=== PATIENT | female | born 1955 | race Caucasian/White ===

== ENCOUNTER 2017-10-30 15:45 | Observation (INO) | payer OTHER ==
[~2017-10-30] VITALS: Ht 165.1 cm; Wt 70.5 kg
[~2017-10-30 15:45] MED LIST: ALPR.25 PO; CYCL1PAK PO; GABA100C4 PO; LISI-363 PO; NITR0.4S SL; NORV5TAB PO; SSD1CRE TOP
[2017-10-30 15:46] VITALS: BP 200/136; PULSE 56; RESP 16; TEMP 98.3; O2SAT 100
[2017-10-30 18:29] LABS: AUTOMATED NEUTROPHIL # 3.3 TH/MM3 (1.8-7.7); BASOPHIL % 0.6 % (0.0-2.0); EOSINOPHIL # 0.1 TH/MM3 (0-0.4); EOSINOPHIL % 1.4 % (0.0-4.0); LYMPH % 44.5 % (9.0-44.0); MEAN CELL VOLUME 90.1 FL (80.0-100.0); MEAN CORPUSCULAR HEMOGLOBIN 30.8 PG (27.0-34.0); MEAN CORPUSCULAR HGB CONC 34.2 % (32.0-36.0); MEAN PLATELET VOLUME 8.3 FL (7.0-11.0); MONO % 5.1 % (0.0-8.0); MONOCYTE # 0.3 TH/MM3 (0-0.9); NEUT % 48.4 % (16.0-70.0); PLATELET COUNT 231 TH/MM3 (150-450); RED BLOOD COUNT 4.54 MIL/MM3 (4.00-5.30); RED CELL DISTRIBUTION WIDTH 12.9 % (11.6-17.2); WHITE BLOOD COUNT 6.8 TH/MM3 (4.0-11.0)
[2017-10-30 18:39] LABS: PROTHROMBIN TIME - PATIENT 9.8 SEC (9.8-11.6)
[2017-10-30 18:40] LABS: ALBUMIN 4.3 GM/DL (3.4-5.0); ALT (GPT) 23 U/L (10-53); AST (GOT) 16 U/L (15-37); BICARBONATE 30.2 MEQ/L (21.0-32.0); BLOOD UREA NITROGEN 12 MG/DL (7-18); CHLORIDE 102 MEQ/L (98-107); CREATININE 0.68 MG/DL (0.50-1.00); GLOMERULAR FILTRATION RATE 87 ML/MIN (>89); GLUCOSE,RANDOM 91 MG/DL (74-106); MAGNESIUM 2.3 MG/DL (1.5-2.5); SODIUM (NA) 138 MEQ/L (136-145)
[2017-10-30 18:44] LABS: ALKALINE PHOSPHATASE 103 U/L (45-117); TOTAL BILIRUBIN ADULT 0.4 MG/DL (0.2-1.0); TOTAL PROTEIN 7.9 GM/DL (6.4-8.2); TROPONIN I LESS THAN 0.02 NG/ML (0.02-0.05)
[2017-10-30 20:48] VITALS: BP 225/102; PULSE 48; RESP 18; O2SAT 99
[2017-10-30] MEDS ORDERED: CYCL5TAB PO (20:59)
[2017-10-30] MEDS ORDERED: ALPR0.25 PO (20:59)
[2017-10-30] MEDS ORDERED: METO1TAB9 PO (20:59)
[2017-10-30] MEDS ORDERED: DICY10CA12 PO (20:59)
[2017-10-30] MEDS ORDERED: GABA300C5 PO (20:59)
[2017-10-30] MEDS ORDERED: hydrALAZINE HCL 20 MG/ML VIAL IV PUSH ONE (21:15)
--- NOTE | 2017-10-30 21:40 | PD ---
HPI Chief Complaint: Medical Clearance Time Seen by Provider: 20:57 Travel History International Travel<30 days: No Contact w/Intl Traveler<30days: No Traveled to known affect area: No History of Present Illness HPI 62-year-old female that presents to the ED for evaluation of left arm pain. Per patient she has been not feeling well since yesterday. Per patient today she woke up with left biceps pain. Per patient she's had a history of heart disease and feels similar to her previous event. Per patient 2013 she had a heart And similar symptoms was found to have likely quinton spasm of her arteries. She was not found to have any clot the needed stenting. Per patient last time she had the same symptoms and she did not have any chest pain. Per patient he feels just like last time. Per patient the discomfort to the arm is more like a spasm. She denies falling asleep on it or injuring it. No history of blood clots. She states compliance with her medications including metoprolol for high blood pressure. She does have a history of smoking. Family history of heart disease. No history of diabetes or high cholesterol. She states that she took her metoprolol dose today. Per patient her blood pressure has been monitored with PCP and has been doing well. She still rates her pain as 4 out of 10. Again no chest pain or shortness of breath. Per patient she did not take aspirin but she doesn't know why her doctor told her to stop taking the aspirin. Per patient she was told not to take aspirin anymore. PFSH Past Medical History Cancer: Yes (CERVICAL CA--HYSTERECTOMY 2005) Cardiovascular Problems: Yes (LAD SPASM 01/2014) Chest Pain: No Diabetes: No Endocrine: No Gastrointestinal Disorders: Yes (ACID REFLUX, ULCER WHEN 19 Y.O.) Glaucoma: No Genitourinary: No Hepatitis: Yes Hiatal Hernia: No Hypertension: Yes Immune Disorder: No Musculoskeletal: Yes (ARTHRITIS, LOWER BACK PROBLEMS) Neurologic: No Psychiatric: Yes (ANXIETY) Reproductive: No Respiratory: No Integumentary: No Thyroid Disease: Yes (NODULE REMOVED 1981) Tetanus Vaccination: > 5 Years Influenza Vaccination: No ?: Not Past Surgical History Abdominal Surgery: No AICD: No Cardiac Surgery: Yes (CARDIAC CATH , NO STENTS) Ear Surgery: No Endocrine Surgery: Yes (THYROID NODULE REMOVED 1981) Genitourinary Surgery: No Gynecologic Surgery: Yes (TOTAL HYSTERECTOMY 2005) Hysterectomy: Yes Joint Replacement: No Oral Surgery: No Pacemaker: No Thoracic Surgery: No Other Surgery: Yes (THYROID NODE REMOVED) Social History Alcohol Use: No Tobacco Use: Yes (VERY RARE) Substance Use: No Allergies-Medications (Allergen,Severity, Reaction): Coded Allergies: caffeine (Unverified Allergy, Severe, Rash, CARDIAC SPASMS, 06/05/17) prochlorperazine (Unverified Adverse Reaction, Severe, Numbness, FACIAL SPASM, 06/05/17) Reported Meds & Prescriptions Reported Meds & Active Scripts Active Reported Dicyclomine (Dicyclomine HCl) 10 Mg Cap 10 Mg PO QID Metoprolol Succinate ER 24 HR (Metoprolol Succinate) 50 Mg Tab 50 Mg PO DAILY Flexeril (Cyclobenzaprine HCl) 5 Mg Tab 5 Mg PO TID Gabapentin 300 Mg Cap 300 Mg PO BID Alprazolam 0.25 Mg Tab 0.25 Mg PO Q4H PRN Review of Systems Except as stated in HPI: all other systems reviewed are Neg Physical Exam Narrative GENERAL: SKIN: Warm and dry. HEAD: Atraumatic. Normocephalic. EYES: Pupils equal and round. No scleral icterus. No injection or drainage. ENT: No nasal bleeding or discharge. Mucous membranes pink and moist. Tongue is midline. No uvula deviation. NECK: Trachea midline. No JVD. CARDIOVASCULAR: Regular rate and rhythm. No murmurs, S3, S4. RESPIRATORY: No accessory muscle use. Clear to auscultation. Breath sounds equal bilaterally. GASTROINTESTINAL: Abdomen soft, non-tender, nondistended. Hepatic and splenic margins not palpable. MUSCULOSKELETAL: Extremities without clubbing, cyanosis, or edema. No obvious deformities. Full range of motion of the upper and lower extremities bilaterally. No obvious deformity or reproducible pain on the left triceps or biceps area. No lymphadenopathy noted. 2+ pulses bilaterally. NEUROLOGICAL: Awake and alert. No obvious cranial nerve deficits. Motor grossly within normal limits. Five out of 5 muscle strength in the arms and legs. Normal speech. PSYCHIATRIC: Appropriate mood and affect; insight and judgment normal. Data Data Last Documented VS Vital Signs Date Time Temp Pulse Resp B/P (MAP) Pulse Ox O2 Delivery O2 Flow Rate FiO2 10/30/17 22:38 71 18 158/83 (108) 99 Room Air 10/30/17 15:46 98.3 Orders Orders Electrocardiogram (10/30/17 16:30) Ckmb (Isoenzyme) Profile (10/30/17 16:30) Complete Blood Count With Diff (10/30/17 16:30) Comprehensive Metabolic Panel (10/30/17 16:30) Magnesium (Mg) (10/30/17 16:30) Prothrombin Time / Inr (Pt) (10/30/17 16:30) Act Partial Throm Time (Ptt) (10/30/17 16:30) Troponin I (10/30/17 16:30) Hydralazine Inj (Apresoline Inj) (10/30/17 21:15) Us Arm Venous Doppler (10/30/17 ) Chest, Single Ap (10/30/17 ) Nitroglycerin Sl (Nitrostat Sl) (10/30/17 22:15) Acetaminophen (Tylenol) (10/30/17 22:15) Labs Laboratory Tests Test 10/30/17 18:05 White Blood Count 6.8 TH/MM3 Red Blood Count 4.54 MIL/MM3 Hemoglobin 14.0 GM/DL Hematocrit 41.0 % Mean Corpuscular Volume 90.1 FL Mean Corpuscular Hemoglobin 30.8 PG Mean Corpuscular Hemoglobin Concent 34.2 % Red Cell Distribution Width 12.9 % Platelet Count 231 TH/MM3 Mean Platelet Volume 8.3 FL Neutrophils (%) (Auto) 48.4 % Lymphocytes (%) (Auto) 44.5 % Monocytes (%) (Auto) 5.1 % Eosinophils (%) (Auto) 1.4 % Basophils (%) (Auto) 0.6 % Neutrophils # (Auto) 3.3 TH/MM3 Lymphocytes # (Auto) 3.0 TH/MM3 Monocytes # (Auto) 0.3 TH/MM3 Eosinophils # (Auto) 0.1 TH/MM3 Basophils # (Auto) 0.0 TH/MM3 CBC Comment DIFF FINAL Differential Comment Prothrombin Time 9.8 SEC Prothromb Time International Ratio 1.0 RATIO Activated Partial Thromboplast Time 30.6 SEC Blood Urea Nitrogen 12 MG/DL Creatinine 0.68 MG/DL Random Glucose 91 MG/DL Total Protein 7.9 GM/DL Albumin 4.3 GM/DL Calcium Level 9.0 MG/DL Magnesium Level 2.3 MG/DL Alkaline Phosphatase 103 U/L Aspartate Amino Transf (AST/SGOT) 16 U/L Alanine Aminotransferase (ALT/SGPT) 23 U/L Total Bilirubin 0.4 MG/DL Sodium Level 138 MEQ/L Potassium Level 4.3 MEQ/L Chloride Level 102 MEQ/L Carbon Dioxide Level 30.2 MEQ/L Anion Gap 6 MEQ/L Estimat Glomerular Filtration Rate 87 ML/MIN Total Creatine Kinase 51 U/L Troponin I LESS THAN 0.02 NG/ML MDM Medical Decision Making Medical Screen Exam Complete: Yes Emergency Medical Condition: Yes Medical Record Reviewed: Yes Interpretation(s) CBC & BMP Diagram 10/30/17 18:05 Total Protein 7.9, Albumin 4.3, Calcium Level 9.0, Magnesium Level 2.3, Alkaline Phosphatase 103, Aspartate Amino Transf (AST/SGOT) 16, Alanine Aminotransferase (ALT/SGPT) 23, Total Bilirubin 0.4 troponin and CKMB negative EKG shows sinus bradycardia but no sign of acute ischemia read by me and attending. Differential Diagnosis ACS versus DVT versus electrolyte abnormality versus anxiety versus angina equivalent versus normal exam Narrative Course 62-year-old female that presents to the ED for evaluation of left arm pain. Patient was properly examined and was found to have signs and symptoms consistent with appears to be left arm pain. Concerning for ACS is patient states this is the same history she had before. I did review the patient's medical records and she her heart Here that show possible basilar spasm and no clotting. Patient does have a history of high blood pressure and was found to be hypertensive here. Case discussed in my attending who agrees with plan. Labs and imaging were ordered. Patient was given IV hydralazine. labs and imaging showed no obvious sign of acute disease. Patient did develop some chest pain and nitro given. BP came down. CXR was reordered as patient initially refused it as she had no chest pain. Case was signed out to my attending pending admission. Irwin Franco Oct 30, 2017 21:40
[2017-10-30 22:00] VITALS: BP 190/91; PULSE 83; RESP 18; O2SAT 99
[2017-10-30] MEDS ORDERED: ACETAMINOPHEN 325 MG TAB PO ONE (22:15)
[2017-10-30] MEDS ORDERED: NITROGLYCERIN 0.4 MG SL 25 TABS/BTL SL ONE (22:15)
--- NOTE | 2017-10-30 22:15 | RADRPT ---
EXAM DATE/TIME: 10/30/2017 21:36 [facility] COMPARISON: No previous studies available for comparison. INDICATIONS : Left arm pain. MEDICAL HISTORY : Hypertension. Gastroesophageal reflux disease. Ulcer. Cervical cancer. Anxiety. SURGICAL HISTORY : Hysterectomy. Cardiac catheterization. Thyroid nodule removed. Lumbar disc surgery. ENCOUNTER: Initial ACUITY: 1 day PAIN SCORE: 4/10 LOCATION: Left arm. FINDINGS: There is spontaneous flow documented in the brachial, basilic, axillary, and subclavian veins. Could not identify the cephalic vein The vessels are compressible and augmentation response is documented. No filling defects are seen. The flow is phasic with respiration. Direction of flow in the jugula r vein is caudal. CONCLUSION: Unremarkable Doppler ultrasound of the left arm. Nonvisualization of the cephalic vein. Hiren Bourne MD on October 30, 2017 at 22:12 Board Certified Radiologist. This report was verified electronically.
[2017-10-30 22:38] VITALS: BP 158/83; PULSE 71; RESP 18; O2SAT 99
--- NOTE | 2017-10-30 23:03 | RADRPT ---
EXAM DATE/TIME: 10/30/2017 22:49 [facility] COMPARISON: CHEST SINGLE AP, October 12, 2014, 5:46. INDICATIONS : Chest pain. MEDICAL HISTORY : Hypertension. Gastroesophageal reflux disease. Cervical cancer. SURGICAL HISTORY : Hysterectomy. ENCOUNTER: Initial ACUITY: 1 day PAIN SCORE: 4/10 LOCATION: Bilateral chest FINDINGS: A single view of the chest demonstrates the lungs to be symmetrically aerated without evidence of mas s, infiltrate or effusion. The cardiomediastinal contours are unremarkable. Osseous structures are intact. CONCLUSION: 1. No acute cardiopulmonary disease. Sameer Lora MD on October 30, 2017 at 23:01 Board Certified Radiologist. This report was verified electronically.
[2017-10-30] MEDS ORDERED: ONDANSETRON HCL 4 MG/2 ML VIAL IV PUSH ONE (23:45)
[2017-10-31] VITALS (7 sets, daily range): BP systolic 127–220; BP diastolic 60–110; PULSE 62–85; RESP 16–20; TEMP 98.2; O2SAT 98–99
--- NOTE | 2017-10-31 00:21 | PD ---
Physical Exam Narrative Patient was seen by my hair assistant and signed out to me. Data Data Last Documented VS Vital Signs Date Time Temp Pulse Resp B/P (MAP) Pulse Ox O2 Delivery O2 Flow Rate FiO2 10/30/17 22:38 71 18 158/83 (108) 99 Room Air 10/30/17 15:46 98.3 Orders Orders Electrocardiogram (10/30/17 16:30) Ckmb (Isoenzyme) Profile (10/30/17 16:30) Complete Blood Count With Diff (10/30/17 16:30) Comprehensive Metabolic Panel (10/30/17 16:30) Magnesium (Mg) (10/30/17 16:30) Prothrombin Time / Inr (Pt) (10/30/17 16:30) Act Partial Throm Time (Ptt) (10/30/17 16:30) Troponin I (10/30/17 16:30) Hydralazine Inj (Apresoline Inj) (10/30/17 21:15) Us Arm Venous Doppler (10/30/17 ) Chest, Single Ap (10/30/17 ) Nitroglycerin Sl (Nitrostat Sl) (10/30/17 22:15) Acetaminophen (Tylenol) (10/30/17 22:15) Ondansetron Inj (Zofran Inj) (10/30/17 23:45) Labs Laboratory Tests Test 10/30/17 18:05 White Blood Count 6.8 TH/MM3 Red Blood Count 4.54 MIL/MM3 Hemoglobin 14.0 GM/DL Hematocrit 41.0 % Mean Corpuscular Volume 90.1 FL Mean Corpuscular Hemoglobin 30.8 PG Mean Corpuscular Hemoglobin Concent 34.2 % Red Cell Distribution Width 12.9 % Platelet Count 231 TH/MM3 Mean Platelet Volume 8.3 FL Neutrophils (%) (Auto) 48.4 % Lymphocytes (%) (Auto) 44.5 % Monocytes (%) (Auto) 5.1 % Eosinophils (%) (Auto) 1.4 % Basophils (%) (Auto) 0.6 % Neutrophils # (Auto) 3.3 TH/MM3 Lymphocytes # (Auto) 3.0 TH/MM3 Monocytes # (Auto) 0.3 TH/MM3 Eosinophils # (Auto) 0.1 TH/MM3 Basophils # (Auto) 0.0 TH/MM3 CBC Comment DIFF FINAL Differential Comment Prothrombin Time 9.8 SEC Prothromb Time International Ratio 1.0 RATIO Activated Partial Thromboplast Time 30.6 SEC Blood Urea Nitrogen 12 MG/DL Creatinine 0.68 MG/DL Random Glucose 91 MG/DL Total Protein 7.9 GM/DL Albumin 4.3 GM/DL Calcium Level 9.0 MG/DL Magnesium Level 2.3 MG/DL Alkaline Phosphatase 103 U/L Aspartate Amino Transf (AST/SGOT) 16 U/L Alanine Aminotransferase (ALT/SGPT) 23 U/L Total Bilirubin 0.4 MG/DL Sodium Level 138 MEQ/L Potassium Level 4.3 MEQ/L Chloride Level 102 MEQ/L Carbon Dioxide Level 30.2 MEQ/L Anion Gap 6 MEQ/L Estimat Glomerular Filtration Rate 87 ML/MIN Total Creatine Kinase 51 U/L Troponin I LESS THAN 0.02 NG/ML MDM Supervised Visit with ADAL: Yes Interpretation(s) 12:15 AM. EKG shows sinus bradycardia rate 47. Nonspecific ST-T wave changes. Inverted T-wave in V1 and V2. Last Impressions Upper Extremity Ultrasound 10/30/17 0000 Signed Impressions: Service Date/Time: Monday, October 30, 2017 21:36 - CONCLUSION: Unremarkable Doppler ultrasound of the left arm. Nonvisualization of the cephalic vein. Hiren Bourne MD Chest X-Ray 10/30/17 0000 Signed Impressions: Service Date/Time: Monday, October 30, 2017 22:49 - CONCLUSION: 1. No acute cardiopulmonary disease. Sameer Lora MD CBC within normal limit. CMP within normal limit. Cardiac enzymes are normal. Diagnosis Primary Impression: Chest pain Qualified Codes: R07.9 - Chest pain, unspecified Additional Impression: Uncontrolled hypertension Emil Nguyen MD Oct 31, 2017 00:21
[2017-10-31] MEDS ORDERED: cloNIDine HCL 0.1 MG TAB PO ONE (00:30)
[2017-10-31] MEDS ORDERED: ACETAMINOPHEN 325 MG TAB PO ONE (00:30)
[2017-10-31] MEDS ORDERED: ONDANSETRON HCL 4 MG/2 ML VIAL IV PUSH PRN (00:45)
[2017-10-31] MEDS ORDERED: ACETAMINOPHEN 500 MG CPLT PO PRN (00:45)
[2017-10-31] MEDS ORDERED: SODIUM CHLORIDE 0.9% FLUSH 10 ML FLUSH IV FLUSH PRN (00:45)
[2017-10-31 03:28] LABS: TROPONIN I LESS THAN 0.02 NG/ML (0.02-0.05)
[2017-10-31] MEDS ORDERED: LABETALOL HCL 100 MG/20 ML VIAL IV PUSH ONE (05:45)
[2017-10-31] MEDS ORDERED: METOCLOPRAMIDE HCL 10 MG/2 ML VIAL IV PUSH ONE ×3 (05:45→10:00)
[2017-10-31] MEDS ORDERED: diphenhydrAMINE HCL 50 MG/ML VIAL IV PUSH ONE (05:45)
[2017-10-31 06:17] LABS: TROPONIN I LESS THAN 0.02 NG/ML (0.02-0.05)
--- NOTE | 2017-10-31 08:43 | HHI.HP ---
[facility] Primary Care Physician Ganesh Noel M.D. Chief Complaint Left arm pain History of Present Illness This is a 62-year-old female that presents to ED via private vehicle with complaint of having left arm discomfort throughout the day yesterday. Estimates at least 8 hours. Found nothing to worsen or improve it. Denies shortness breath, nausea, or diaphoresis. States she follows Dr. Pompa. Dates blood pressure medication was recently changed from lisinopril to metoprolol. States her blood pressure has been high since being in the ED. Planes also headache when she initially arrived in the ED but that has since resolved. Review of Systems General: Patient denies fevers, chills recent, and recent travel HEENT: Patient denies headache, sore throat, difficulty swallowing. Cardiovascular: Has the left arm discomfort as mentioned above. Denies sensation of heart beating rapidly or irregularly. No syncope. Respiratory: Denies shortness of breath or inspirational chest discomfort. Denies coughing wheezing or hemoptysis. GI: Patient denies nausea, vomiting, diarrhea, abdominal pain, bloody stools. Musculoskeletal: Patient denies joint pain or edema. Denies calf pain or edema. Neurovascular: Patient denies numbness, tingling, weakness in extremities. Denies headache. Endocrine: Denies polyuria and polydipsia. Hematologic: Denies easy bruising. Skin: Denies rash or itching. Past Family Social History Allergies: Coded Allergies: caffeine (Unverified Allergy, Severe, Rash, CARDIAC SPASMS, 06/05/17) prochlorperazine (Unverified Adverse Reaction, Severe, Numbness, FACIAL SPASM, 06/05/17) Past Medical History Hypertension. Denies hyperlipidemia, diabetes, and known CAD. Past Surgical History Elio catheterization without intervention in 2013. Reported Medications Reported Meds & Active Scripts Active Reported Dicyclomine (Dicyclomine HCl) 10 Mg Cap 10 Mg PO QID Metoprolol Succinate ER 24 HR (Metoprolol Succinate) 50 Mg Tab 50 Mg PO DAILY Flexeril (Cyclobenzaprine HCl) 5 Mg Tab 5 Mg PO TID Gabapentin 300 Mg Cap 300 Mg PO BID Alprazolam 0.25 Mg Tab 0.25 Mg PO Q4H PRN Active Ordered Medications Current Medications Medications (Trade) Dose Ordered Sig/Bacilio Route Start Time Stop Time Status Last Admin (NS Flush) 2 ml UNSCH PRN IV FLUSH 10/31/17 00:45 (NS Flush) 2 ml BID IV FLUSH 10/31/17 09:00 (Tylenol) 500 mg Q4H PRN PO 10/31/17 00:45 (Zofran Inj) 4 mg Q6H PRN IV PUSH 10/31/17 00:45 (Norvasc) 5 mg DAILY PO 10/31/17 09:00 Family History Denies family history of CAD. Social History Quit smoking a couple years ago but prior that she smoked maybe three-quarter pack of cigars daily for 8-10 years. Denies alcohol or illicit drugs. Physical Exam Vital Signs Vital Signs Date Time Temp Pulse Resp B/P (MAP) Pulse Ox O2 Delivery O2 Flow Rate FiO2 10/31/17 06:30 187/88 (121) 10/31/17 05:43 85 20 220/110 (146) 99 Room Air 10/31/17 04:30 65 18 180/89 (119) 98 Room Air 10/31/17 00:20 62 18 184/88 (120) 98 Room Air 10/30/17 22:38 71 18 158/83 (108) 99 Room Air 10/30/17 22:00 83 18 190/91 (124) 99 Room Air 10/30/17 20:48 48 18 225/102 (143) 99 Room Air 10/30/17 15:46 98.3 56 16 200/136 (157) 100 Room Air Physical Exam GENERAL: This is a well-nourished, well-developed patient, in no apparent distress. Patient speaks in clear complete sentences. Patient is pleasant. HEENT: Head is atraumatic and normocephalic. Neck is supple without lymphadenopathy and trachea is midline. No JVD or carotid bruits. CARDIOVASCULAR: Regular rate and rhythm without murmurs, gallops, or rubs. RESPIRATORY: Clear to auscultation. Breath sounds equal bilaterally. No wheezes , rales, or rhonchi. Chest wall is nontender. No use of accessory muscles. GASTROINTESTINAL: Abdomen is nontender, nondistended. Abdomen soft. No obvious pulsatile mass or bruit. No CVA tenderness. Strong femoral pulses bilaterally. Normal bowel sounds in all quadrants. MUSCULOSKELETAL: Patient is moving upper and lower extremities freely. No calf tenderness or edema, no Homans sign. Strong pulses in upper and lower extremities. NEUROLOGICAL: Patient is alert and oriented. Cranial nerves 2-12 are grossly intact. No focal deficits and speech is clear. SKIN: No rash and turgor is normal. Laboratory Laboratory Tests Test 10/30/17 18:05 10/31/17 02:50 10/31/17 05:40 White Blood Count 6.8 Red Blood Count 4.54 Hemoglobin 14.0 Hematocrit 41.0 Mean Corpuscular Volume 90.1 Mean Corpuscular Hemoglobin 30.8 Mean Corpuscular Hemoglobin Concent 34.2 Red Cell Distribution Width 12.9 Platelet Count 231 Mean Platelet Volume 8.3 Neutrophils (%) (Auto) 48.4 Lymphocytes (%) (Auto) 44.5 Monocytes (%) (Auto) 5.1 Eosinophils (%) (Auto) 1.4 Basophils (%) (Auto) 0.6 Neutrophils # (Auto) 3.3 Lymphocytes # (Auto) 3.0 Monocytes # (Auto) 0.3 Eosinophils # (Auto) 0.1 Basophils # (Auto) 0.0 CBC Comment DIFF FINAL Differential Comment Prothrombin Time 9.8 Prothromb Time International Ratio 1.0 Activated Partial Thromboplast Time 30.6 Blood Urea Nitrogen 12 Creatinine 0.68 Random Glucose 91 Total Protein 7.9 Albumin 4.3 Calcium Level 9.0 Magnesium Level 2.3 Alkaline Phosphatase 103 Aspartate Amino Transf (AST/SGOT) 16 Alanine Aminotransferase (ALT/SGPT) 23 Total Bilirubin 0.4 Sodium Level 138 Potassium Level 4.3 Chloride Level 102 Carbon Dioxide Level 30.2 Anion Gap 6 Estimat Glomerular Filtration Rate 87 Total Creatine Kinase 51 42 57 Troponin I LESS THAN 0.02 LESS THAN 0.02 LESS THAN 0.02 Result Diagram: 10/30/17180410/30/171804 Imaging Last 48 hours Impressions Upper Extremity Ultrasound 10/30/17 0000 Signed Impressions: Service Date/Time: Monday, October 30, 2017 21:36 - CONCLUSION: Unremarkable Doppler ultrasound of the left arm. Nonvisualization of the cephalic vein. Hiren Bourne MD Chest X-Ray 10/30/17 0000 Signed Impressions: Service Date/Time: Monday, October 30, 2017 22:49 - CONCLUSION: 1. No acute cardiopulmonary disease. Sameer Lora MD Course EKGs have been sinus rhythm to sinus bradycardia without significant ST segment depressions or elevations. Caprini VTE Risk Assessment Caprini VTE Risk Assessment: Mod/High Risk (score >= 2) Caprini Risk Assessment Model Point Value = 1 Point Value = 2 Point Value = 3 Point Value = 5 Age 41-60 Minor surgery BMI > 25 kg/m2 Swollen legs Varicose veins or History of unexplained or recurrent spontaneous Oral contraceptives or hormone replacement Sepsis (< 1 month) Serious lung disease, including pneumonia (< 1 month) Abnormal pulmonary function Acute myocardial infarction Congestive heart failure (< 1 month) History of inflammatory bowel disease Medical patient at bed rest Age 61-74 Arthroscopic surgery Major open surgery (> 45 min) Laparoscopic surgery (> 45 min) Malignancy Confined to bed (> 72 hours) Immobilizing plaster cast Central venous access Age >= 75 History of VTE Family history of VTE Factor V Leiden Prothrombin [id number] Lupus anticoagulant Anticardiolipin antibodies Elevated serum homocysteine Heparin-induced thrombocytopenia Other congenital or acquired thrombophilia Stroke (< 1 month) Elective arthroplasty Hip, pelvis, or leg fracture Acute spinal cord injury (< 1 month) Prophylaxis Regimen Total Risk Factor Score Risk Level Prophylaxis Regimen 0-1 Low Early ambulation 2 Moderate Order ONE of the following: *Sequential Compression Device (SCD) *Heparin 5000 units SQ BID 3-4 Higher Order ONE of the following medications: *Heparin 5000 units SQ TID *Enoxaparin/Lovenox 40 mg SQ daily (WT < 150 kg, CrCl > 30 mL/min) *Enoxaparin/Lovenox 30 mg SQ daily (WT < 150 kg, CrCl > 10-29 mL/min) *Enoxaparin/Lovenox 30 mg SQ BID (WT < 150 kg, CrCl > 30 mL/min) AND/OR *Sequential Compression Device (SCD) 5 or more Highest Order ONE of the following medications: *Heparin 5000 units SQ TID (Preferred with Epidurals) *Enoxaparin/Lovenox 40 mg SQ daily (WT < 150 kg, CrCl > 30 mL/min) *Enoxaparin/Lovenox 30 mg SQ daily (WT < 150 kg, CrCl > 10-29 mL/min) *Enoxaparin/Lovenox 30 mg SQ BID (WT < 150 kg, CrCl > 30 mL/min) AND *Sequential Compression Device (SCD) Assessment and Plan Assessment and Plan * Left arm pain/atypical chest pain: Patient complained of left arm pain lasting for 8 hours. Had normal troponins. Seen by Dr. Sameer Mcmahon of cardiology in the chest pain center. Review records, patient had cardiac catheterization in 2013 with essentially normal coronaries and questionable spasm of the LAD. Follows Dr. Pompa. Will discuss further with Dr. Pompa to make further plan. * Hypertension: Patient states medication was switched from lisinopril to metoprolol. She has been hypertensive. We'll add amlodipine. Patient is stable this time. She is agreeable to this plan. Ephraim Wilder Oct 31, 2017 08:43
[2017-10-31] MEDS ORDERED: amLODIPine BESYLATE 5 MG TAB PO SCH (09:00)
[2017-10-31] MEDS ORDERED: SODIUM CHLORIDE 0.9% FLUSH 10 ML FLUSH IV FLUSH SCH (09:00)
[2017-10-31] MEDS ORDERED: METOPROLOL SUCCINATE 50 MG EXTENDED RELEASE TAB PO SCH (10:45)
[2017-10-31] MEDS ORDERED: cloNIDine HCL 0.1 MG TAB PO PRN (13:00)
[2017-10-31] MEDS ORDERED: REGADENOSON INJ 0.4 MG/5 ML SYR ONE (13:17)
--- NOTE | 2017-10-31 15:07 | RADRPT ---
EXAM DATE/TIME: 10/31/2017 13:11 [facility] COMPARISON: No previous studies available for comparison. INDICATIONS : Left chest and arm pain for one day. Angina. DOSE: 26.2 mCi Tc99m Myoview at stress. 8.5 mCi Tc99m Myoview at rest. 0.4 mg Lexiscan STRESS SYMPTOMS: Nausea and vomiting. Shortness of breath and hot. EJECTION FRACTION: > 70% MEDICAL HISTORY : Hypertension. SURGICAL HISTORY : Hysterectomy. ENCOUNTER: Initial ACUITY: 1 day PAIN SCALE: 5/10 LOCATION: Left chest TECHNIQUE: The patient underwent pharmacologic stress with infusion of prescribed dose. Continuous ECG tracing was monitored during stress. Gated SPECT imaging was performed after stress and conventional SPECT i maging was performed at rest. The examination was performed on a SPECT/CT scanner, both attenuation and non-corrected datasets were reviewed. FINDINGS: DISTRIBUTION: The maximum perfused segment at stress is in the anterior wall. PERFUSION STUDY: The pattern of perfusion at stress is within normal limits. GATED STUDY: There is intact wall motion and thickening without hypokinetic or dyskinetic segments. CONCLUSION: 1. No fixed or reversible defect to suggest ischemia or infarction. 2. Normal wall motion and calculated ejection fraction. RISK CATEGORY: Low (<1% Annual Mortality Rate) Lucho Valdez MD on October 31, 2017 at 15:02 Board Certified Radiologist. This report was verified electronically.
[2017-10-31] MEDS ORDERED: AMLO5TAB2 PO (15:57)
--- NOTE | 2017-10-31 15:57 | HHI.DCPOC ---
Discharge Care Plan Diagnosis: (1) Chest pain (2) Hypertension Goals to Promote Your Health * To prevent worsening of your condition and complications * To maintain your health at the optimal level Directions to Meet Your Goals Take your medications as prescribed Follow your dietary instruction Follow activity as directed Keep your appointments as scheduled Take your immunizations and boosters as scheduled If your symptoms worsen call your PCP, if no PCP go to Urgent Care Center or Emergency Room Smoking is Dangerous to Your Health. Avoid second hand smoke Call the 24-hour hour crisis hotline for domestic abuse at Ephraim Wilder Oct 31, 2017 15:57
--- NOTE | 2017-11-01 16:04 | TR ---
Date Performed: 10/31/2017 Time Performed: 13:29:38 DOCTOR: Sameer Mcmahon DRUG LIST: CLINICAL HISTORY: ANGINA REASON FOR TEST: Angina REASON FOR ENDING: OBSERVATION: CONCLUSION: Lexiscan stress test was performed under standard four minute protocol. Radionuclid e was injected one minute prior to ending the test. No electrocardiographic abormalities were present to suggest ischemia. Nuclear imaging and interpretation are pending. COMMENTS:
--- NOTE | 2017-11-06 11:15 | EKG ---
Date Performed: 10/30/2017 Time Performed: 18:10:01 PTAGE: 62 years EKG: SINUS BRADYCARDIA POSSIBLE LEFT ATRIAL ENLARGEMENT MODERATE INTRAVENTRICULAR CONDUCTION DEL AY BORDERLINE ECG PREVIOUS TRACING : 03/04/2014 11.50 DOCTOR: Hiren Sotomayor Interpretating Date/Time 11/06/2017 11:15:14
--- NOTE | 2017-11-06 11:15 | EKG ---
Date Performed: 10/31/2017 Time Performed: 02:53:02 PTAGE: 62 years EKG: Sinus rhythm POSSIBLE LEFT ATRIAL ENLARGEMENT POSSIBLE RIGHT VENTRICULAR CONDUCTION DELAY MINIMAL ST DEPRESSION P ROLONGED QT INTERVAL ABNORMAL ECG PREVIOUS TRACING : 10/30/2017 18.10 DOCTOR: Hiren Sotomayor Interpretating Date/Time 11/06/2017 11:14:41
--- NOTE | 2017-11-06 11:15 | EKG ---
Date Performed: 10/31/2017 Time Performed: 05:39:22 PTAGE: 62 years EKG: SINUS BRADYCARDIA POSSIBLE LEFT ATRIAL ENLARGEMENT MODERATE INTRAVENTRICULAR CONDUCTION DEL AY MINIMAL ST DEPRESSION BORDERLINE ECG NO PREVIOUS TRACING DOCTOR: Hiren Sotomayor Interpretating Date/Time 11/06/2017 11:14:22
== END 2017-10-31 18:40 | disposition home or self-care (01) ==
LOC: NEPE 15:45 → NEDA 10-31 00:38 → NEDH 10-31 04:38 → NEPGCP 10-31 11:34
PROVIDERS: ADMIT Internal Medicine Cardiovascular Disease; ATTEND Internal Medicine Cardiovascular Disease
DX: R07.89 Other chest pain (principal); M79.602 Pain in left arm; I10 Essential (primary) hypertension; R51 Headache; R00.1 Bradycardia, unspecified; I45.81 Long QT syndrome; R94.31 Abnormal electrocardiogram [ECG] [EKG]; K21.9 Gastro-esophageal reflux disease without esophagitis; K75.9 Inflammatory liver disease, unspecified; F41.9 Anxiety disorder, unspecified; M19.90 Unspecified osteoarthritis, unspecified site; Z87.891 Personal history of nicotine dependence; Z79.899 Other long term (current) drug therapy; Z85.41 Personal history of malignant neoplasm of cervix uteri
CPT/HCPCS: 71045; 78452; 80053; 82550; 83735; 84484; 85025; 85610; 85730; 93005; 93017; 93971; 96374; 96375; 99285; A9502; G0378; J0360; J1200; J2405; J2765; J2785